=== PATIENT | female | born 2000 | race Caucasian/White ===

== ENCOUNTER 2019-10-02 20:22 | Emergency (ER) | payer OTHER ==
[2019-10-02] MEDS ORDERED: MECLIZINE HCL 25 MG TABLET PO ONE (20:39)
[2019-10-02] MEDS ORDERED: ONDANSETRON HCL 8 MG TABLET PO ONE (20:39)
--- NOTE | 2019-10-02 20:43 | ER Document Report ---
ED Medical Screen (RME) - General Chief Complaint: Nausea Stated Complaint: NAUSEA/LUMP ON BACK OF HEAD Time Seen by Provider: 10/02/19 20:34 Mode of Arrival: Ambulatory Information source: Patient Notes: Patient presents complaining of nausea and lightheadedness. Patient states whenever she lies down the room will spin. Patient also complains of a tender lump to the left occipital scalp area. Patient denies any fever. Patient denies any vomiting or diarrhea. Patient denies any abdominal tenderness. I have greeted and performed a rapid initial assessment of this patient. A comprehensive ED assessment and evaluation of the patient, analysis of test results and completion of the medical decision making process will be conducted by additional ED providers. - Related Data Allergies/Adverse Reactions: No Known Allergies Allergy (Unverified 10/02/19 20:37) Home Medications: [place] Physical Exam - Vital signs Vitals: Temp Pulse Resp BP Pulse Ox 97.9 F 88 20 125/62 97 10/02/19 20:29 10/02/19 20:29 10/02/19 20:29 10/02/19 20:29 10/02/19 20:29 - General Notes: Tender lymph node to the left occipital scalp area - Cardiovascular Rhythm: Regular Heart sounds: S1 appreciated, S2 appreciated Course - Vital Signs Vital signs: Temp Pulse Resp BP Pulse Ox 97.9 F 88 20 125/62 97 10/02/19 20:29 10/02/19 20:29 10/02/19 20:29 10/02/19 20:29 10/02/19 20:29
[2019-10-02] MEDS ORDERED: IBUPROFEN 800 MG TABLET PO ONE (23:04)
[2019-10-02] MEDS ORDERED: CYCLOBENZAPRINE HCL 10 MG TABLET PO ONE (23:05)
--- NOTE | 2019-10-02 23:06 | ER Document Report ---
HPI - HPI Time Seen by Provider: 10/02/19 20:34 Pain Level: 4 Notes: Patient presents complaining of nausea and lightheadedness. Patient states whenever she lies down the room will spin. Patient also complains of a tender lump to the left occipital scalp area. Patient denies any fever. Patient denies any vomiting or diarrhea. Patient denies any abdominal tenderness. - REPRODUCTIVE Reproductive: DENIES: : Past Medical History - General Information source: Patient - Social History Smoking Status: Never Smoker Family History: Reviewed & Not Pertinent Patient has suicidal ideation: No Patient has homicidal ideation: No - Medical History Medical History: Negative Surgical Hx: Negative - Immunizations Immunizations up to date: Yes Vertical Provider Document - CONSTITUTIONAL Notes: PHYSICAL EXAMINATION: GENERAL: Well-appearing, well-nourished and in no acute distress. HEAD: Atraumatic, normocephalic. EYES: Pupils equal round and reactive to light, extraocular movements intact, conjunctiva are normal. ENT: Nares patent, oropharynx clear without exudates. Moist mucous membranes. NECK: Normal range of motion, supple without lymphadenopathy. Tenderness to palpation in the left lateral neck over the sternocleidomastoid muscle. No nuchal rigidity. LUNGS: Breath sounds clear to auscultation bilaterally and equal. No wheezes rales or rhonchi. HEART: Regular rate and rhythm without murmurs ABDOMEN: Soft, nontender, nondistended abdomen. No guarding, no rebound. No masses appreciated. Female : deferred Musculoskeletal: Normal range of motion, no pitting or edema. No cyanosis. NEUROLOGICAL: Cranial nerves grossly intact. Normal speech, normal gait. Normal sensory, motor exams PSYCH: Normal mood, normal affect. SKIN: Warm, Dry, normal turgor, no rashes or lesions noted. Course - Re-evaluation Re-evalutation: Laboratory 10/02/19 21:22 Urine HCG, Qual NEGATIVE Examination consistent with torticollis, no nuchal rigidity noted, no meningismus signs, no fever. Patient appears well, nontoxic will be discharged home with muscle relaxers. Patient verbalized understanding and agreement this plan. - Vital Signs Vital signs: Temp Pulse Resp BP Pulse Ox 97.9 F 88 20 125/62 97 10/02/19 20:29 10/02/19 20:29 10/02/19 20:29 10/02/19 20:29 10/02/19 20:29 Discharge - Discharge Clinical Impression: Torticollis Condition: Stable Disposition: HOME, SELF-CARE Additional Instructions: Torticollis You have torticollis, often called "wry neck." This is due to spasm of neck muscles -- locking the neck into a crooked position. Many different problems can lead to torticollis, such as a minor injury, sleeping with tension on the neck, or inflammation in the glands of the neck. Torticollis is usually treated with heat to relax the neck muscles, but the physician may recommend cold packs if a minor injury is suspected as the cause. Muscle relaxing and antiinflammatory medicine are often prescribed. You may need a neck collar to support your head. Improvement is usually rapid. Usually, the neck can be moved fully within two days, although some pain may persist for a few weeks. Call the doctor at once if you worsen, or if you develop high fever, severe headache, numbness or weakness, or other alarming symptoms. Please follow-up with your primary care provider if not improving over the next 3 days. Take Tylenol and ibuprofen as directed on the bottles. Take the muscle relaxer as prescribed. Use nausea medication as needed. Return to the emergency department any new or worsening symptoms as outlined above. Prescriptions: Cyclobenzaprine HCl [Flexeril 10 mg Tablet] 10 mg PO TIDP PRN #20 tab PRN Reason: Ondansetron [Zofran Odt 4 mg Tablet] 1 - 2 tab PO Q4H PRN #15 tab.rapdis PRN Reason: For Nausea/Vomiting
[2019-10-02 23:36] VITALS: BP 118/60
== END 2019-10-02 23:36 | disposition home or self-care (01) ==
LOC: ER 20:22
DX: M43.6 Torticollis (principal); R11.0 Nausea; R42 Dizziness and giddiness; R22.0 Localized swelling, mass and lump, head
CPT/HCPCS: 99283; 81025; S0119

== ENCOUNTER 2020-10-24 14:19 | Inpatient (IN) | payer OTHER ==
[2020-10-24 15:08] LABS: APPEARANCE,URINE SLIGHTLY-CLOUDY; BILIRUBIN,URINE NEGATIVE (NEGATIVE); COLOR,URINE YELLOW; GLUCOSE, URINE NEGATIVE (NEGATIVE); KETONES,URINE NEGATIVE (NEGATIVE); LEUKOCYTE ESTERASE,URINE TRACE (NEGATIVE); NITRITE,URINE NEGATIVE (NEGATIVE); PROTEIN,URINE NEGATIVE (NEGATIVE); URINE SPECIFIC GRAVITY 1.023; UROBILINOGEN,URINE NEGATIVE mg/dL (<2.0)
[2020-10-24 15:24] LABS: URINE AMPHETAMINES SCREEN NEGATIVE; URINE BARBITURATES SCREEN NEGATIVE; URINE BENZODIAZEPINES SCREEN NEGATIVE; URINE COCAINE SCREEN NEGATIVE; URINE MARIJUANA (THC) SCREEN NEGATIVE; URINE METHADONE SCREEN NEGATIVE; URINE PHENCYCLIDINE SCREEN NEGATIVE
[2020-10-24] MEDS ORDERED: ZIDOVUDINE IV ONE ×2 (15:29→16:30)
[2020-10-24] MEDS ORDERED: RINGERS SOLUTION,LACTATED 1,000 ML IV ONE (15:40)
[2020-10-24] MEDS ORDERED: RINGERS SOLUTION,LACTATED 500 ML IV ONE (15:40)
[2020-10-24] MEDS ORDERED: ZIDOVUDINE IV SCH (16:00)
[2020-10-24] MEDS ORDERED: DEXTROSE 5% IV ONE (16:30)
[2020-10-24] MEDS ORDERED: WATER IV ONE (16:30)
--- NOTE | 2020-10-24 16:46 | Admission Physical ---
Datetime Report Generated by CPN: 10/24/2020 16:45 CURRENT ADMISSION Chief Complaint: Uterine Contractions Indication for Induction: Not Applicable Admit Impression : Term, Intrauterine ; Active Labor; Intact Membranes Admit Plan: Admit to Unit; Initiate Labor Protocol ALLERGIES Medication Allergies: No Medication Allergies: No Known Allergies (10/24/2020) Latex: No Latex Allergies OBSTETRICAL HISTORY EDC: 11/14/2020 00:00 : 2 Para: 1 Term: 1 : 0 SAB: 0 IAB: 0 Livin PHYSICAL EXAM General: Normal HEENT: Normal Neurologic: Normal Thyroid: Deferred Heart: Normal Lungs: Normal Breast: Deferred Back: Normal Abdomen: Normal Genitourinary Exam: Normal Extremities: Normal DTRs: Normal Pelvic Type: Adequate Vital Signs: Reviewed VAGINAL EXAM Dilatation: 3 Effacement: 50 Station: -2 Contraction Comments: q 2-3 MEMBRANES Membranes: Intact FETUS A EGA: 37.0 Monitoring: External US FHR- Baseline: 125 Variability: Moderate 6-25bpm Accelerations: 15X15 Decelerations: None FHR Category: Category I Presentation: Vertex Admit Comment: 20yo at 37+0ega by LMP and c/w 1st trimester US presents with regular uterine contractions since 1030 this am. c/b HIV positive. She reports HIV load is undetectable and has been for 6 months. I reviewed with patient that if viral load is truly undetectable that low risk of vertical transmission (less than 1-2%). Per our office notes (no actual lab results available) on 10/21/2020 she reported viral load of 10,000-15,000. I addressed this with patient and reviewed that if viral load is above 1,000 that her risk of transmission is moderate to high and section would be recommended. She reports that she reviewed all of this with her Infectious Disease provider Dr. Katz. She is 100% sure that her viral load is less than 1,000 and desires vaginal delivery. She declines section. I reviewed with her the recommendations for ZDV loading dose and hourly until delivery if vaginal or if c/s for ZDV per above protocol at least 3-4 hours prior to section. NICU has been notified. Dr. Luther is aware. I have called Dr. Katz office and once of his partners returned my call. THey will return call with viral load from 09/21. Office # was [phone] and reached provider through answering service. O/w is uncomplicated. She has a prior vaginal delivery with epidural with 6#15oz at 41wks. EFW was 7#6oz on 10/21/2020. ANatomy was normal per prior US report. labs ordered for admission. Plan to delay AROM and if needed pitocin until after 4 hours after initial administration of zidovudine. GBS negative. 37wks therefore do not need BMZ. Admit for delivery and plan as above. WIll document updates as needed. INFORMED CONSENT Informed Consent Obtained: Vaginal Delivery; Risks, Benefits and Alternatives Discussed Signature: with User ID: [email or web address]
--- NOTE | 2020-10-24 16:59 | L&D Progress Notes ---
PROGRESS NOTES Datetime Report Generated by CPN: 10/24/2020 16:59 PROGRESS NOTE Impression: Normal Progression of Labor Plan: Continue Present Management Informed Consent Obtained: Vaginal Delivery; Risks, Benefits and Alternatives Discussed Comment: Infectious disease called me back. He reports that she had her last viral load on 10/03. He confirmed she has had undetectable viral load since March. Spoke with Sultana from Pharmacy. They only have enough ZDV for load then 8 hours of infusion. SHe is calling [facility] for meds. Dr. Luther reports pharmacy has meds for baby. continue with plan of care VAGINAL EXAM Dilatation: 3 Effacement: 50 Station: -2 Contractions: q 2-3 LAST VAGINAL EXAM-NURSING Nursing Exam Dilitation: 3.0 Nursing Exam Effacement: 50 Nursing Exam Station: -2 MEMBRANES Membranes: Intact FETUS A Presentation: Vertex SIGNATURE SIGNATURE: [id number] Signature: with User ID: [email or web address]
[2020-10-24 17:02] LABS: ABSOLUTE EOSINOPHILS # (AUTO) 0.1 10^3/uL (0.0-0.6); ABSOLUTE MONOCYTES (AUTO) 0.8 10^3/uL (0.1-1.4); ABSOLUTE NEUT (AUTO) 8.4 10^3/uL (1.7-8.2); BASOPHILS % (AUTO) 0.1 % (0-2); EOSINOPHILS % (AUTO) 1.2 % (0-6); HEMATOCRIT 35.9 % (36.0-47.0); HEMOGLOBIN 11.7 g/dL (12.0-15.5); MEAN CORPUSCULAR HEMOGLOBIN 27.3 pg (27.0-33.4); MEAN CORPUSCULAR HGB CONC 32.7 g/dL (32.0-36.0); MEAN CORPUSCULAR VOLUME 83 fl (80-97); MONOCYTES % (AUTO) 6.4 % (3-13); PLATELET COUNT 292 10^3/uL (150-450); RED BLOOD COUNT 4.31 10^6/uL (3.72-5.28); RED CELL DISTRIBUTION WIDTH 14.8 % (11.5-14.0); SEGMENTED NEUTROPHILS % (AUTO) 68.3 % (42-78); TOTAL CELLS COUNTED % (AUTO) 100 %; WHITE BLOOD COUNT 12.3 10^3/uL (4.0-10.5)
[2020-10-24 17:05] LABS: INTERNATIONAL RATION (INR) 1.01; PROTHROMBIN TIME 13.5 SEC (11.4-15.4)
[2020-10-24 17:06] LABS: PARTIAL THROMBOPLASTIN TIME 26.9 SEC (23.5-35.8)
[2020-10-24 17:20] LABS: ALBUMIN 3.5 g/dL (3.5-5.0); ALKALINE PHOSPHATASE 162 U/L (38-126); ANION GAP 11 (5-19); ASPARTATE AMINO TRANSFERASE 29 U/L (14-36); BILIRUBIN,DIRECT 0.1 mg/dL (0.0-0.4); BILIRUBIN,TOTAL 0.4 mg/dL (0.2-1.3); BLOOD UREA NITROGEN 9 mg/dL (7-20); CALCIUM 9.4 mg/dL (8.4-10.2); CARBON DIOXIDE 20 mmol/L (22-30); CHLORIDE 104 mmol/L (98-107); POTASSIUM 4.3 mmol/L (3.6-5.0)
[2020-10-24] MEDS ORDERED: WATER IV PRN (17:20)
[2020-10-24] MEDS ORDERED: DEXTROSE 5% IV PRN (17:20)
[2020-10-24] MEDS ORDERED: ZIDOVUDINE IV PRN (17:20)
[2020-10-24 18:03] LABS: GLUCOSE 68 mg/dL (75-110)
[2020-10-24] MEDS ORDERED: RINGERS SOLUTION,LACTATED 1,000 ML IV PRN (19:43)
[2020-10-24] MEDS ORDERED: NORMAL SALINE 1000 ML 1,000 ML IV PRN (19:49)
[2020-10-25] MEDS ORDERED: OXYTOCIN/0.9 % SODIUM CHLORIDE 30 UNIT/500 ML RTUINJ IV PRN ×2 (00:10→11:37)
[2020-10-25] MEDS ORDERED: OXYTOCIN 10 UNIT/ML VIAL ONE (00:20)
[2020-10-25] MEDS ORDERED: LIDOCAINE 1% INJ-PF (10 MG/ML) 30 ML SDV ONE (00:20)
[2020-10-25] MEDS ORDERED: OXYTOCIN/0.9 % SODIUM CHLORIDE 30 UNIT/500 ML RTUINJ ONE (00:20)
[2020-10-25] MEDS ORDERED: MISOPROSTOL 0.2 MG TABLET ONE (00:20)
--- NOTE | 2020-10-25 06:57 | L&D Progress Notes ---
PROGRESS NOTES Datetime Report Generated by CPN: 10/25/2020 06:57 PROGRESS NOTE Impression: Normal Progression of Labor Procedures: Artificial ROM Plan: Continue Present Management; Augmentation Informed Consent Obtained: Vaginal Delivery; Risks, Benefits and Alternatives Discussed Vital Signs : Reviewed Comment: Bulging bag. AROM performed easily since bag was bulging through membranes. No contact made with any part. AROM and clear fluid. 6-7cm/80/-2. Anticipate VAGINAL EXAM Dilatation: 3 Effacement: 50 Station: -2 Contractions: q 2-3 LAST VAGINAL EXAM-NURSING Nursing Exam Dilitation: 6.0 Nursing Exam Effacement: 75 Nursing Exam Station: -3 MEMBRANES Membranes: Intact FETUS A FHR - Baseline: 135 Monitoring: External US Variability: Moderate 6-25bpm Accelerations: 15X15 Decelerations: None FHR Category: Category I Presentation: Vertex SIGNATURE SIGNATURE: [id number];[id number] Signature: with User ID: [email or web address]
[2020-10-25] MEDS ORDERED: EPHEDRINE SULFATE INJ 50 MG/1 ML AMPULE ONE (07:20)
[2020-10-25] MEDS ORDERED: ROPIVACAINE HCL 0.2% INJ/PF (2 MG/ML) 20 ML SDV ONE (07:20)
[2020-10-25] MEDS ORDERED: FENTANYL/BUPIVACAINE/NS/PF 300 MCG/150 ML RTUINJ EPI ONE (07:20)
[2020-10-25] MEDS ORDERED: BENZOCAINE/MENTHOL AEROSOL SPRAY 56 ML TOP PRN (11:37)
[2020-10-25] MEDS ORDERED: ACETAMINOPHEN 325 MG TABLET PO PRN (11:37)
[2020-10-25] MEDS ORDERED: ACETAMINOPHEN 650 MG SUPP.RECT PR PRN (11:37)
[2020-10-25] MEDS ORDERED: PSEUDOEPHEDRINE HCL 30 MG TABLET PO PRN (11:37)
[2020-10-25] MEDS ORDERED: FAMOTIDINE 20 MG TABLET PO PRN (11:37)
[2020-10-25] MEDS ORDERED: DIPH/PERTUSS(ACELL)/TETANUS VAC/PF 0.5 ML SYR (>=10YO) IM PRN (11:37)
[2020-10-25] MEDS ORDERED: DIBUCAINE 1% OINTMENT 28 GM TP PRN (11:37)
[2020-10-25] MEDS ORDERED: MEASLES,MUMPS&RUBELLA VACC/PF 0.5 ML VIAL SUBCUT PRN (11:37)
[2020-10-25] MEDS ORDERED: MAG HYDROX/AL HYDROX/SIMETH SUSP 30 ML UDCUP PO PRN (11:37)
[2020-10-25] MEDS ORDERED: ACETAMINOPHEN WITH CODEINE #3 TABLET PO PRN ×2 (11:37)
[2020-10-25] MEDS ORDERED: VARICELLA VACC/PF (1350 UNIT/0.5 ML) 0.5 ML VIAL SUBCUT PRN (11:37)
[2020-10-25] MEDS ORDERED: MAGNESIUM HYDROXIDE SUSP 30 ML UDCUP PO PRN (11:37)
[2020-10-25] MEDS ORDERED: GLYCERIN/WITCH HAZEL LEAF 1 EACH MED..WIPE TP PRN (11:37)
[2020-10-25] MEDS ORDERED: DIPHENHYDRAMINE HCL 25 MG CAPSULE PO PRN (11:37)
--- NOTE | 2020-10-25 13:46 | Birth Certificate Data ---
Cert Data Datetime Report Generated by CPBelem: 10/25/2020 13:46 CERTIFICATE DATA Delivery Provider: Nighat Brian CNM (10/24/2020 14:39:Sharon Osei RN) 47a. Care: Yes (10/24/2020 14:39:Zoya Valadez RN) 47b. Date of First Visit: 05/10/2020 00:00 (10/24/2020 14:39:Zoya Valadez RN) 47c. Date of Last Visit: 10/21/2020 00:00 (10/24/2020 14:39:Zoay Valadez RN) 47d. Number of Visits: 7 (10/24/2020 14:39:Zoya Valadez RN) 48a. Number of Prev Live Births: 1 (10/24/2020 14:39:Zoya Valadez RN) 48b. Now Livin (10/24/2020 14:39:Zoya Valadez RN) 48c. Live Births Now : 0 (10/24/2020 14:39:QS system process) 48e. Losses: 0 (10/24/2020 14:39:Zoya Valadez RN) RISK FACTORS IN THIS 49a. Diabetes: No (10/24/2020 14:39:Zoya Valadez RN) 49b. Hypertension: No (10/24/2020 14:39:Zoya Valadez RN) 49c. Previous Births: 0 (10/24/2020 14:39:Zoya Valadez RN) 49d. Stillborns: No (10/24/2020 14:39:Zoya Valadez RN) 49d. IUGR: No (10/24/2020 14:39:Zoya Valadez RN) 49e. Infertility Treatment: No (10/24/2020 14:39:Zoya Valadez RN) 49f. Previous Cesareans: 0 (10/24/2020 14:39:Zoya Valadez RN) Mother's Height 50b. Height Inches: 58 (10/24/2020 17:10:QS system process) Mother's Weight 51a. Pre- Weight (lbs): 165 (10/24/2020 14:39:Zoya Valadez RN) 51b. Weight at Delivery (lbs): 205 (10/24/2020 17:10:QS system process) 52. Dt Last Normal Menses Began: 02/08/2020 00:00 (10/24/2020 14:39:Zoya Valadez RN) Infections Present/Treated 53a. Gonorrhea: No (10/24/2020 14:39:Zoya Valadez RN) Results this Hospital Visit : Negative (10/24/2020 14:39:Lisbeth Mcgregor MD ([facility])) 53b. Syphilis: No (10/24/2020 14:39:Zoya Valadez RN) Results this Hospital Visit: NONREACTIVE (10/24/2020 16:39:QS system process) 53c. Chlamydia: No (10/24/2020 14:39:Zoya Valadez RN) Results this Hospital Visit: Negative (10/24/2020 14:39:Lisbeth Mcgregor MD ([facility])) 53d. Hepatitis B: No (10/24/2020 14:39:Zoya Valadez RN) Results this Hospital Visit: Negative (10/24/2020 14:39:Lisbeth Mcgregor MD ([facility])) 53e. Hepatitis C: Negative (10/24/2020 14:39:Lisbeth Mcgregor MD ([facility])) 53h. Mother Tested for HBsAG: Yes (10/24/2020 14:39:Zoya Valadez RN) 53i. Date Tested: 05/10/2020 00:00 (10/24/2020 14:39:Zoya Valadez RN) 53j. Test Result: Negative (10/24/2020 14:39:Lisbeth Mcgregor MD ([facility])) Obstetric Procedures 54a, b, c. Obstetric Procedures: Ultrasound; NST (10/24/2020 14:39:Zoya Valadez RN) Cigarette Smoking Cigarette Smoking: Never Smoker. [id number] (10/24/2020 14:39:Zoya Valadez RN) 55a. 3 Months Before Preg - Ci (10/24/2020 14:39:Annia Bales RN) 55b. 1st Trimester of Preg- Ci (10/24/2020 14:39:Annia Bales RN) 55c. 2nd Trimester of Preg- Ci (10/24/2020 14:39:Annia Bales RN) 55d. 3rd Trimester of Preg- Ci (10/24/2020 14:39:Annia Bales RN) Onset of Labor 56a. PROM >12 Hrs: 4.70 (10/24/2020 14:39:QS system process) 56b. Precipitous Labor <3 Hrs: 6 (10/24/2020 14:39:QS system process) 56c. Prolonged Labor > 20 Hrs: 6 (10/24/2020 14:39:QS system process) 57a. Induction of Labor: Augmentation (10/24/2020 14:39:Sharon Osei RN) 57c. Non-Vertex Presentation A: Vertex (10/24/2020 14:39:Kyra Valerio RN) 57d. Steroids - Lung Mat: None (10/24/2020 14:39:Sharon Osei RN) 57d. Steroids - Lung Mat: Not Applicable (10/24/2020 14:39:Sharon Osei RN) 57f. Mat Ch[place] or Temp >100.4: 98.3 (10/24/2020 14:39:Kyra Valerio RN) 57g. Moderate/Heavy Meconium: Clear (10/25/2020 06:27:Annia Bales RN) 57i. Epidural/Spinal Anesthesia: Epidural (10/24/2020 14:39:Sharon Osei RN) Method of Delivery 58a. Forceps - Unsuccessful A: N/A (10/24/2020 14:39:Kyra Valerio RN) 58b. Vacuum - Unsuccessful A: N/A (10/24/2020 14:39:Kyra Valerio RN) 58c. Presentation at 58c. Presentation at - A : Vertex (10/24/2020 14:39:Kyra Valerio RN) 58c. Presentation at - A : N/A (10/24/2020 14:39:Kyra Valerio RN) 58c. Presentation at - A : Cephalic (10/25/2020 06:27:Annia Bales RN) Final Route and Method of Del 58d. Baby A Route/Delivery: Vaginal (10/25/2020 11:09:Kyra Valerio RN) 58e. Trial of Labor Attempted: No (10/24/2020 14:39:Sharon Osei RN) 58e. Trial of Labor Attempted A: N/A (10/24/2020 14:39:Sharon Osei RN) 58e. Trial of Labor Attempted B: N/A (10/24/2020 14:39:Sharon Osei RN) Maternal Morbidity 59b. 3rd or 4th Degree Lacs: Perineal (10/24/2020 14:39:Nighat Brian CNM) Birthweight Baby A: 2735 (10/24/2020 14:39:Kyra Feuston, RN) 60a. Pounds : 6 (10/24/2020 14:39:QS system process) 60b. Ounces: 0 (10/24/2020 14:39:QS system process) 61. GA at Delivery Baby A: 37.1 (10/24/2020 14:39:[facility]) : Early Term- 37- 38.6 Weeks (10/24/2020 14:39:QS system process) 62a. 5 Minute Baby A: 8 (10/24/2020 14:39:QS system process) 62b. 10 Minute Baby A: 9 (10/24/2020 14:39:QS system process)
--- NOTE | 2020-10-25 13:46 | Delivery Summary ---
Del Sum A-C Datetime Report Generated by CPN: 10/25/2020 13:46 DELIVERY PERSONNEL DELIVERY PERSONNEL: [id number] Delivery Doctor:: Nighat Brian CNM Nurse Acute Care Clinical Nurse Specialist Certified:: Nighat Brian CNM Labor and Delivery Nurse:: Kyra Valerio RNmixer foam rubber Nurse:: Sharon Osei RN Nursery Nurse:: Ashley Jefferson RN MATERNAL INFORMATION Delivery Anesthesia: Epidural Medications After Delivery: Pitocin 30 Units in 500ml NS/D5W; Cytotec 1000mcg Per Rectum/Vagina Delivery QBL: 50 Maternal Complications: None Provider Comments: viable male from OA to ALVIN over ML lac, edematous perinum and labia, placed on mothers abd, cord clamped and cut after 2 minutes by g-mother, cord blood obtained, spont delivery of small placenta, sent to lab, laceration repaired, ice applied to vulva uterine atony, resolved with massage, Pitocin, cytotec 1000mcg baby seen by nursery nurse and sent to nursery for evaluation mom remains in recovery in stable condition LABOR SUMMARY EDC: 11/14/2020 00:00 No. Babies in Womb: 1 Attempted: No Labor Anesthesia: Epidural LABOR INFORMATION Reason for Induction: Not Applicable Onset of Labor: 10/25/2020 04:54 Complete Dilatation: 10/25/2020 09:27 Oxytocin: Augmentation Group B Beta Strep: negative Antibiotics # of Doses: n/a Name of Antibiotic Given: n/a Steroids Given: None Reason Steroids Not Administered: Not Applicable MEMBRANES Membranes Rupture Method: Artificial Rupture of Membranes: 10/25/2020 06:27 Length of Rupture (hr): 4.70 Amniotic Fluid Color: Clear Amniotic Fluid Amount: Moderate Amniotic Fluid Odor: None STAGES OF LABOR Stage 1 hr: 4 Stage 1 min: 33 Stage 2 hr: 1 Stage 2 min: 42 Stage 3 hr: 0 Stage 3 min: 5 Total Time in Labor hr: 6 Total Time in Labor min: 20 VAGINAL DELIVERY Episiotomy: None Laceration #1: Perineal Laceration Extension #1: First Degree Laceration Repair: Yes Laceration Repair Note: 2-0 chromic, epidural Sponge Count Correct: Yes Sharps Count Correct: Yes BABY A INFORMATION Delivery Date/Time: 10/25/2020 11:09 Method of Delivery: Vaginal Nurse Controlled Delivery: No Born in Route : No : N/A Forceps: N/A Vacuum Extraction: N/A Shoulder Dystocia : No PRESENTATION/POSITION BABY A Presentation: Cephalic Cephalic Presentation: Vertex Vertex Position: Left Occipital Anterior Breech Presentation: N/A PLACENTA INFORMATION BABY A Placenta Delivery Time : 10/25/2020 11:14 Placenta Method of Delivery: Spontaneous Placenta Status: Delivered SCORES BABY A Heart Rate 1 min: >100 bpm Resp Effort 1 min: Good Cry Reflex Irritability 1 min: Cough or Sneeze or Pulls Away Muscle Tone 1 min: Some Flexion of Extremities Color 1 min: Blue/Pale Resuscitation Effort 1 min: Tactile Stimulation; Oxygen SCORE 1 MIN: 7 Heart Rate 5 min: >100 bpm Resp Effort 5 min: Good Cry Reflex Irritability 5 min: Cough or Sneeze or Pulls Away Muscle Tone 5 min: Active Motion Color 5 min: Blue/Pale Resuscitation Effort 5 min: Tactile Stimulation; Oxygen SCORE 5 MIN: 8 Heart Rate 10 min: >100 bpm Resp Effort 10 min: Good Cry Reflex Irritability 10 min: Cough or Sneeze or Pulls Away Muscle Tone 10 min: Active Motion Color 10 min: Body Vandling, Extremities Blue Resuscitation Effort 10 min: N/A SCORE 10 MIN: 9 INFANT INFORMATION BABY A Gestational Age at Delivery: 37.1 Gestational Status: Early Term- 37- 38.6 Weeks Outcome : Liveborn Infant Condition : Stable Infant Sex: Male IDENTIFICATION BABY A Infant Verification Date/Time: 10/25/2020 11:45 ID Band Number: [id number] Mother's Name Verified: Yes RN Verifying : KERRY Ng Additional Verifying Personnel: Edwina Osei RN WEIGHT/LENGTH BABY A Infant Birthweight (gm): 2735 Weight (lb): 6 Weight (oz): 0 Infant Length (in): 19.50 Infant Length (cm): 49.53 CORD INFORMATION BABY A No. Cord Vessels: 3 Nuchal Cord : N/A Cord Blood Taken: Yes-For Eval (Mom's Blood Type - or O+) Suction: Mouth; Nose ASSESSMENT BABY A Complications: Multiple Late Decels Physical Findings at Delivery: Within Normal Limits Infant Respirations: Appears Normal Skin to Skin: Yes Skin to Skin Time (min): 5 BABY B INFORMATION : N/A
[2020-10-25] MEDS ORDERED: IBUPROFEN 800 MG TABLET ONE (13:57)
[2020-10-25] MEDS: IBUPROFEN 800 MG TABLET PO SCH ×2 (14:00→22:17)
[2020-10-25] MEDS: DOCUSATE SODIUM 100 MG CAPSULE PO SCH (17:59)
[2020-10-25] MEDS: FERROUS SULFATE 325 MG TABLET PO SCH (17:59)
[2020-10-26] MEDS: IBUPROFEN 800 MG TABLET PO SCH ×3 (06:05→21:56)
[2020-10-26 08:50] LABS: HEMOGLOBIN 10.8 g/dL (12.0-15.5); MEAN CORPUSCULAR HEMOGLOBIN 27.3 pg (27.0-33.4); MEAN CORPUSCULAR HGB CONC 32.6 g/dL (32.0-36.0); MEAN CORPUSCULAR VOLUME 84 fl (80-97); PLATELET COUNT 233 10^3/uL (150-450); RED BLOOD COUNT 3.94 10^6/uL (3.72-5.28); RED CELL DISTRIBUTION WIDTH 14.9 % (11.5-14.0); WHITE BLOOD COUNT 12.5 10^3/uL (4.0-10.5)
[2020-10-26] MEDS ORDERED: SENNOSIDES/DOCUSATE 8.6-50 MG 1 EACH TABLET PO SCH (10:00)
[2020-10-26] MEDS: FERROUS SULFATE 325 MG TABLET PO SCH ×2 (10:11→18:08)
[2020-10-26] MEDS: PRENATAL VITAMIN W DHA CAPSULE PO SCH (10:11)
[2020-10-26] MEDS: DOCUSATE SODIUM 100 MG CAPSULE PO SCH ×2 (10:12→18:08)
--- NOTE | 2020-10-26 11:06 | PDOC PROGRESS REPORT ---
Subjective-OB Progress Note for:: 10/26/20 Subjective: Doing well, no c/o, sitting up in chair, bottle feeding, encouraged to wear a bra, tight fitting Physical Exam (OB) Vital Signs: Temp Pulse Resp BP Pulse Ox 97.7 F 80 18 130/64 H 99 10/26/20 09:11 10/26/20 07:33 10/26/20 07:33 10/26/20 07:33 10/26/20 07:33 Intake & Output 10/25/20 10/26/20 10/27/20 06:59 06:59 06:59 Intake Total 1008 Output Total 600 Balance 408 Weight 93.3 kg - PIH/Pre-Eclampsia Headache: Absent Epigastric Pain: No Visual Changes: No - Maternal Morbidity 59. Maternal Morbidity (serious complications experinced by the mother associated with labor and delivery: None of the above - Lochia Lochia Amount: Scant < 10 ml Lochia Color: Rubra/Red - Abdomen Description: Soft, Round Hernia Present: No Fundal Description: Firm, Midline Fundal Height: u/u - u/2 Objective-Diagnostic Laboratory: 10/26/20 07:51 10/24/20 16:39 10/26/20 07:51 WBC 12.5 H RBC 3.94 Hgb 10.8 L Hct 33.0 L MCV 84 MCH 27.3 MCHC 32.6 RDW 14.9 H Plt Count 233 Assessment and Plan(PN) - Assessment and Plan (1) Perineal laceration Is this a current diagnosis for this admission?: Yes (2) Vaginal delivery Is this a current diagnosis for this admission?: Yes - Time Spent with Patient Time with patient: Less than 15 minutes Medications reviewed and adjusted accordingly: Yes - Disposition Anticipated Discharge Disposition: Home, Self Care Anticipated Discharge Timeframe: within 24 hours
[2020-10-27] MEDS: IBUPROFEN 800 MG TABLET PO SCH (05:50)
[2020-10-27 08:12] VITALS: BP 104/55
[2020-10-27] MEDS: FERROUS SULFATE 325 MG TABLET PO SCH (09:13)
[2020-10-27] MEDS: DOCUSATE SODIUM 100 MG CAPSULE PO SCH (09:13)
[2020-10-27] MEDS: PRENATAL VITAMIN W DHA CAPSULE PO SCH (09:13)
--- NOTE | 2020-10-27 11:15 | PDOC PROGRESS REPORT ---
Subjective-OB Progress Note for:: 10/27/20 Subjective: Doing well, ready to go home, bottle feeding, voiding, scant lochia Physical Exam (OB) Vital Signs: Temp Pulse Resp BP Pulse Ox 97.7 F 63 16 104/55 L 100 10/27/20 09:31 10/27/20 07:51 10/27/20 07:51 10/27/20 07:51 10/27/20 07:51 Intake & Output 10/26/20 10/27/20 10/28/20 06:59 06:59 06:59 Intake Total 1008 1000 Output Total 600 Balance 408 1000 - PIH/Pre-Eclampsia Headache: Absent Epigastric Pain: No Visual Changes: No - Maternal Morbidity 59. Maternal Morbidity (serious complications experinced by the mother associated with labor and delivery: None of the above - Lochia Lochia Amount: Scant < 10 ml Lochia Color: Rubra/Red - Abdomen Description: Soft, Round Hernia Present: No Fundal Description: Firm, Midline Fundal Height: u/u - u/2 Objective-Diagnostic Laboratory: 10/26/20 07:51 10/24/20 16:39 Assessment and Plan(PN) - Assessment and Plan (1) Perineal laceration Is this a current diagnosis for this admission?: Yes (2) Vaginal delivery Is this a current diagnosis for this admission?: Yes (3) HIV affecting , antepartum Is this a current diagnosis for this admission?: Yes - Time Spent with Patient Time with patient: Less than 15 minutes Medications reviewed and adjusted accordingly: Yes - Disposition Anticipated Discharge Disposition: Home, Self Care Anticipated Discharge Timeframe: within 24 hours
--- NOTE | 2020-10-27 11:19 | PDOC DISCHARGE SUMMARY ---
Impression - Admit/DC Date/PCP Admission Date/Primary Care Provider: 10/24/20 15:51 LAURA THIBODEAUX DO Discharge Date: 10/27/20 - Discharge Diagnosis (1) Perineal laceration Is this a current diagnosis for this admission?: Yes (2) Vaginal delivery Is this a current diagnosis for this admission?: Yes (3) HIV affecting , antepartum Is this a current diagnosis for this admission?: Yes - Additional Information Resuscitation Status: Full Code Discharge Diet: As Tolerated, Regular Discharge Activity: Pelvic Rest Referrals: LAURA THIBODEAUX DO [Primary Care Provider] - Home Medications: Abacavir/Dolutegravir/Lamivudi [Triumeq 600-50-300 mg Tablet] 1 each PO DAILY 10/24/20 Vits96/Iron Fum/Folic [ Tablet] 1 each PO DAILY 10/24/20 HPI Gestational Age: 37.1 Reason(s) for Admission: Onset of Labor, Medical Complications Procedures: NST, Ultrasound Intrapartum Procedure(s): Spontaneous Vaginal Delivery Complication(s): Laceration-Perineal Laceration-Degree: 1st Hospital Course Hospital Course: routine 59. Maternal Morbidity (serious complications experinced by the mother associated with labor and delivery: None of the above Results Laboratory Results: WBC 12.5 10^3/uL (4.0-10.5) H 10/26/20 07:51 RBC 3.94 10^6/uL (3.72-5.28) 10/26/20 07:51 Hgb 10.8 g/dL (12.0-15.5) L 10/26/20 07:51 Hct 33.0 % (36.0-47.0) L 10/26/20 07:51 MCV 84 fl (80-97) 10/26/20 07:51 MCH 27.3 pg (27.0-33.4) 10/26/20 07:51 MCHC 32.6 g/dL (32.0-36.0) 10/26/20 07:51 RDW 14.9 % (11.5-14.0) H 10/26/20 07:51 Plt Count 233 10^3/uL (150-450) 10/26/20 07:51 Lymph % (Auto) 24.0 % (13-45) 10/24/20 16:39 [place] % (Auto) 6.4 % (3-13) 10/24/20 16:39 Eos % (Auto) 1.2 % (0-6) 10/24/20 16:39 Baso % (Auto) 0.1 % (0-2) 10/24/20 16:39 Absolute Neuts (auto) 8.4 10^3/uL (1.7-8.2) H 10/24/20 16:39 Absolute Lymphs (auto) 3.0 10^3/uL (0.5-4.7) 10/24/20 16:39 Absolute Monos (auto) 0.8 10^3/uL (0.1-1.4) 10/24/20 16:39 Absolute Eos (auto) 0.1 10^3/uL (0.0-0.6) 10/24/20 16:39 Absolute Basos (auto) 0.0 10^3/uL (0.0-0.2) 10/24/20 16:39 Seg Neutrophils % 68.3 % (42-78) 10/24/20 16:39 PT 13.5 SEC (11.4-15.4) 10/24/20 16:39 INR 1.01 10/24/20 16:39 APTT 26.9 SEC (23.5-35.8) 10/24/20 16:39 Sodium 134.5 mmol/L (137-145) L 10/24/20 16:39 Potassium 4.3 mmol/L (3.6-5.0) 10/24/20 16:39 Chloride 104 mmol/L (98-107) 10/24/20 16:39 Carbon Dioxide 20 mmol/L (22-30) L 10/24/20 16:39 Anion Gap 11 (5-19) 10/24/20 16:39 BUN 9 mg/dL (7-20) 10/24/20 16:39 Creatinine 0.52 mg/dL (0.52-1.25) 10/24/20 16:39 Est GFR ( Amer) > 60 (>60) 10/24/20 16:39 Est GFR (MDRD) Non-Af > 60 (>60) 10/24/20 16:39 Glucose 68 mg/dL (75-110) L 10/24/20 16:39 Calcium 9.4 mg/dL (8.4-10.2) 10/24/20 16:39 Total Bilirubin 0.4 mg/dL (0.2-1.3) 10/24/20 16:39 Direct Bilirubin 0.1 mg/dL (0.0-0.4) 10/24/20 16:39 Neonat Total Bilirubin Not Reportable 10/24/20 16:39 Neonat Direct Bilirubin Not Reportable 10/24/20 16:39 Neonat Indirect Bili Not Reportable 10/24/20 16:39 AST 29 U/L (14-36) 10/24/20 16:39 ALT 20 U/L (<35) 10/24/20 16:39 Alkaline Phosphatase 162 U/L (38-126) H 10/24/20 16:39 Total Protein 7.0 g/dL (6.3-8.2) 10/24/20 16:39 Albumin 3.5 g/dL (3.5-5.0) 10/24/20 16:39 Urine Color YELLOW 10/24/20 14:30 Urine Appearance SLIGHTLY-CLOUDY 10/24/20 14:30 Urine pH 6.0 (5.0-9.0) 10/24/20 14:30 Ur Specific [place] 1.023 10/24/20 14:30 Urine Protein NEGATIVE mg/dL (NEGATIVE) 10/24/20 14:30 Urine Glucose (UA) NEGATIVE mg/dL (NEGATIVE) 10/24/20 14:30 Urine Ketones NEGATIVE mg/dL (NEGATIVE) 10/24/20 14:30 Urine Blood NEGATIVE (NEGATIVE) 10/24/20 14:30 Urine Nitrite NEGATIVE (NEGATIVE) 10/24/20 14:30 Urine Bilirubin NEGATIVE (NEGATIVE) 10/24/20 14:30 Urine Urobilinogen NEGATIVE mg/dL (<2.0) 10/24/20 14:30 Ur Leukocyte Esterase TRACE (NEGATIVE) H 10/24/20 14:30 Urine Ascorbic Acid 40 (NEGATIVE) H 10/24/20 14:30 Membranes Rupture NEGATIVE (NEGATIVE) 10/24/20 23:03 Urine Opiates Screen NEGATIVE 10/24/20 14:30 Urine Methadone Screen NEGATIVE 10/24/20 14:30 Ur Barbiturates Screen NEGATIVE 10/24/20 14:30 Ur Phencyclidine Scrn NEGATIVE 10/24/20 14:30 Ur Amphetamines Screen NEGATIVE 10/24/20 14:30 U Benzodiazepines Scrn NEGATIVE 10/24/20 14:30 Urine Cocaine Screen NEGATIVE 10/24/20 14:30 U Marijuana (THC) Screen NEGATIVE 10/24/20 14:30 RPR NONREACTIVE (NONREACTIVE) 10/24/20 16:39 HIV 1&2 Antibody (NEGATIVE) 10/24/20 16:39 Blood Type O POSITIVE 10/24/20 16:39 Antibody Screen NEGATIVE 10/24/20 16:39 Plan Health Concerns: HIV Plan of Treatment: dc home, fu with ID, continue PNV's, rev S&S to report Goals: no complictions Time Spent: Less than 30 Minutes
[2020-10-28 15:23] LABS: HIV-1 RNA PCR QUANT <20 copies/mL (.)
== END 2020-10-27 14:46 | disposition home or self-care (01) | DRG 807 ==
LOC: LC 14:19 → LR 15:51 → 2S 10-25 14:20
PROVIDERS: ADMIT Student in an Organized Health Care Education/Training Program; ATTEND Student in an Organized Health Care Education/Training Program
PROC: 10E0XZZ Delivery of Products of Conception, External Approach (ICD-10-PCS; principal; 2020-10-25)
PROC: 0HQ9XZZ Repair Perineum Skin, External Approach (ICD-10-PCS; 2020-10-25)
DX: O98.72 Human immunodeficiency virus [HIV] disease complicating childbirth (principal); Z37.0 Single live birth; Z3A.37 37 weeks gestation of pregnancy; Z21 Asymptomatic human immunodeficiency virus [HIV] infection status; O70.0 First degree perineal laceration during delivery; O76 Abnormality in fetal heart rate and rhythm complicating labor and delivery
CPT/HCPCS: 36415; 80053; 80307; 81005; 84112; 85025; 85027; 85610; 85730; 86592; 86701; 86702; 86850; 86900; 86901; 87536; 88307; 94760; J2590; J2795; J3010; J3485; J3490; J7060